=== PATIENT | female | born 1945 | race Caucasian/White ===

== ENCOUNTER 2022-11-17 10:05 | Day surgery (SDC) | payer OTHER ==
[2022-11-17 12:42] VITALS: BP 104/66; PULSE 66; RESP 18; TEMP 97
== END 2022-11-17 12:30 | disposition home or self-care (01) ==
LOC: FASU-ENDO 10:05
PROVIDERS: ATTEND Internal Medicine Gastroenterology
PROC: 0DJD8ZZ Inspection of Lower Intestinal Tract, Via Natural or Artificial Opening Endoscopic (ICD-10-PCS; principal; 2022-11-17 11:11)
DX: Z12.11 Encounter for screening for malignant neoplasm of colon (principal); K64.1 Second degree hemorrhoids